=== PATIENT | male | born 1980 | race Caucasian/White ===

== ENCOUNTER → 2016-12-01 | Outpatient (CLI) | payer OTHER ==
--- NOTE | 2016-12-01 16:53 | KCIC ---
MRI study of the right foot without contrast Clinical indications: Stepped on a nail. Entry wound is at the ball of the foot between the first and second digits. Right foot injury. Right foot pain especially when bearing weight. TECHNIQUE: Noncontrast MRI sequences of the right forefoot and midfoot were performed in all 3 planes. FINDINGS: No bone marrow infiltrative process or fracture is seen. There is degenerative marrow signal abnormality of the distal first metatarsal bone. There is mild degenerative spurring of the first metatarsal phalangeal joint. Small joint effusion of the first metatarsal phalangeal joint and joint space between the distal first metatarsal and the sesamoid bones is seen. There is bone marrow edema of the medial sesamoid bone. There is mild degenerative bone marrow edema of the distal second metatarsal head. There is mild degenerative spurring of the second metatarsal phalangeal joint compartment. No significant joint effusion is seen here. Dorsal subcutaneous soft tissue swelling is seen at the level of the metatarsal phalangeal joints. No discrete round fluid collection is evident. Without contrast, small abscess may be difficult to identify. No paramagnetic susceptibility artifact is seen to indicate a foreign body. Flexor and extensor tendons are intact without tenosynovitis. No deep muscle edema is seen. IMPRESSION: There is bone marrow edema of the medial sesamoid bone. This may be secondary to a bone contusion or avascular necrosis. No fracture line is seen. 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 There is mild dorsal subcutaneous soft tissue edema. Electronically signed by: Darryl Howell MD (12/01/2016 4:50 PM) [id number]
== END | disposition home or self-care (01) ==
LOC: KCIC MRI 14:39
PROVIDERS: ATTEND Family Medicine
DX: S99.921A Unspecified injury of right foot, initial encounter (principal); M19.071 Primary osteoarthritis, right ankle and foot; W45.0XXA Nail entering through skin, initial encounter; Y93.89 Activity, other specified; Y92.89 Other specified places as the place of occurrence of the external cause; Y99.8 Other external cause status
CPT/HCPCS: 73718